=== PATIENT | male | born 1960 | race Two or more races ===

== ENCOUNTER 2025-02-15 05:44 | Inpatient (IN) | payer OTHER, SELFPAY ==
[2025-02-15] VITALS (9 sets, daily range): BP systolic 132–179; BP diastolic 56–88; PULSE 64–97; RESP 14–98; TEMP 34.9–36.9; O2SAT 94–99; BMI 33.0
--- NOTE | 2025-02-15 06:20 | XR_ITS ---
Examination: CT middle inner ear, without contrast. 2-D coronal reconstructions. 2-D sagittal reconstructions. Date and time of exam: February 15, 2025 0728 hrs. Indications: Ear pain beginning 2 days ago CTDI: vol (mGy): 17.9 DLP: (mGycm):155 Technique: Multiple 1.0 mm axial sections of the middle inner ears bilaterally. High-resolution 64 slice scanner utilized. 2-D coronal reconstructions 2-D sagittal reconstructions Low dose protocols were performed. One or more of the following dose reduction techniques were used; automated exposure control, adjustment of the mA and/or KV according to patient size, use of iterative reconstruction technique. Findings: Axial sections of the right demonstrate adequate mastoid aeration. Jugular fossa and carotid canal do not appear remarkable. No deformity of the ossicles. Porus acusticus internus does not exhibit erosion. Cochlear apparatus unremarkable. Semicircular canals normal. Prominent otitis externa. Coronal reconstructions demonstrate no erosion of the scutum. No soft tissue mass in the attic or Prussak's space is seen. Ossicular mass intact. Axial sections of the left demonstrate adequate mastoid aeration. Jugular fossa and carotid canal do not appear remarkable. No deformity of the ossicles. Porus acusticus internus does not exhibit erosion. Cochlear apparatus unremarkable. Semicircular canals normal. Prominent otitis externa Coronal reconstructions demonstrate no erosion of the scutum. Soft tissue mass in the attic or Prussak's space is seen. Ossicular mass intact. Roof of the mastoid air cells appear intact bilaterally. Impression: Bilateral mild acute mastoiditis Bilateral otitis externa Soft tissue density in the left Prussak's space consistent with left cholesteatoma
--- NOTE | 2025-02-15 06:23 | PD.EDRME ---
Rapid Medical Screening Exam RME Arrival date/time: 02/15/25 05:44 64-year-old male with no known medical history presents to the emergency room with a chief complaint of a right ear pain, drainage, and right facial swelling and tenderness behind the ear x 5 days. I have greeted and performed a focused initial assessment of this patient. A comprehensive ED assessment and evaluation of the patient, analysis of all test results, and completion of the medical decision making process will be conducted by additional ED providers. Chief Complaint: Allergic Reaction Time Seen by Provider: 02/15/25 06:12 Vital signs: Vital Signs Temperature 98.4 F 02/15/25 05:53 Pulse Rate 97 02/15/25 05:53 Respiratory Rate 18 02/15/25 05:53 Blood Pressure 179/79 H 02/15/25 05:53 Pulse Oximetry (%) 98 02/15/25 05:53 Oxygen Delivery Method Room Air 02/15/25 05:53 Vital signs reviewed by provider: Yes
[2025-02-15] MEDS: DEXAMETHASONE SOD PHOS INJ 10 MG/ML VIAL PO (06:43)
--- NOTE | 2025-02-15 07:04 | XR_ITS ---
Examination: CT maxillofacial, without intravenous contrast. 2-D sagittal reconstructions. 3-D reconstructions. Date and time of exam:February 15, 2025 0073 hrs. Indications: Patient pain today CTDI: vol (mGy):22.4 DLP: (mGycm):April 28 Technique: Multiple axial images of maxillofacial region, 3.0 mm slice thickness. 2-D sagittal and coronal reconstructions. 3-D reconstructions. Low dose protocols were performed. One or more of the following dose reduction techniques were used; automated exposure control, adjustment of the mA and/or KV according to patient size, use of iterative reconstruction technique. Findings: Frontal bones intact. His fracture Maxilla mandible. Significant chronic left maxillary sinusitis Significant ethmoid sinusitis Acute sphenoid sinusitis Impression: Chronic left maxillary sinusitis. Significant chronic ethmoid sinusitis. Acute left sphenoid sinusitis. Please see the CT middle inner ear report
--- NOTE | 2025-02-15 07:04 | XR_ITS ---
Examination: CT brain head without contrast. 2-D sagittal coronal reconstructions Date and time of exam:February 15, 2025 0728 hrs. Indications: Headaches are obtained. CTDI: vol (mGy):56 DLP: (mGycm):1123 Technique: Multiple CT axial sections of the brain have been obtained, 5 mm slice thickness. Contrast has not been administered. 2-D sagittal, coronal reconstructions have been obtained Low dose protocols were performed. One or more of the following dose reduction techniques were used; automated exposure control, adjustment of the mA and/or KV according to patient size, use of iterative reconstruction technique. Findings: No significant ventricular enlargement. Intra-axial or extra-axial hemorrhage density is not seen. No mass effect or midline shift Basal cisterns are not remarkable. Fourth ventricle is midline. Cranial vault intact. Impression: Negative for acute hemorrhage, mass effect or midline shift Please see the CT middle inner ear report
--- NOTE | 2025-02-15 07:07 | EDNOTE_ITS ---
ED General RME/HPI General Chief complaint: Allergic Reaction Stated complaint: Allergic reaction Time Seen by Provider: 02/15/25 06:12 Source: patient Arrival date/time: 02/15/25 05:44 RME / HPI RME / HPI narrative: DR. NUÑEZ MAIN ED EVALUATION: 64-year-old male with no known medical history presents to the emergency room with a chief complaint of a 5 days of increasing facial swelling and pain supposed started on the left eye and then went to the right eye we also complains of right ear discomfort with normal hearing. 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 Denies any toothache or tooth problem. He is got no intraoral problem. He also states he fell does not believe that is a contributing factor. Denies drinking alcohol or using drugs. Old records reviewed he has got a history of diabetes and methamphetamine abuse. Patient has no changes in his vision his hearing is normal bilaterally. Related Data Home Medications ?Medication ?Instructions ?Recorded ?Confirmed No Known Home Medications 10/23/1802/23 Allergies Allergy/AdvReac Type Severity Reaction Status Date / Time No Known Allergies Allergy Verified 08/12/19 09:44 Review of Systems Review of Systems Systems Reviewed: All systems reviewed, normal except as documented Narrative Review of Systems: Review of Systems: Constitutional: DENIES: Fevers,; Eyes: DENIES: Loss of vision, Head/Ear/Nose: DENIES: Loss of hearing. Throat: Denies dysphagia. Cardiovascular: Denies chest pain, Dyspnea or syncope. Respiratory: DENIES: Shortness of breath, Gastrointestinal: DENIES: Rectal bleeding or melena. Genitourinary: DENIES: Dysuria (painful or difficult urination),; Musculoskeletal: DENIES: Arthralgia (pain in a joint),; Skin: DENIES: Rash,; see HPI Neurological: DENIES: loss of function or movement,; Psychiatric: DENIES: recent major life stressor, emotional problem, illicit drug use or abuse,; Endocrinology: DENIES: Weight change,; Hematologic/Lymphatic: DENIES: Abnormal bruising. Allergic/Immunologic: DENIES: Urticaria (hives), Past Medical History Past Medical History CARDIAC: Positive Hypertension ENDOCRINE: Positive Diabetes Mellitus Type 2 Social History SMOKING STATUS: Never smoker SUBSTANCE USE: does not use ALCOHOL: Never ED Exam Narrative Physical exam: Physical Exam: General: The vital signs were reviewed. Patient has obvious swelling to his face and eyes. The patient is non-toxic, in no apparent distress and appears healthy with a patent airway, no respiratory distress and has no apparent circulatory problems. Head & Scalp: Normocephalic, atraumatic. Face: Bilateral face and maxillary areas have erythema and edema worse on the right with near closure of the eye but he can still open his lids. There is a little debris on the eyelids but no gross purulence. He denies any loss of vision when he opens his eyes and he has full range of motion. The conjunctiva are clear with no lesions. The cornea is grossly clear. Ears: Bilateral tympanic membranes are visualized and clear the external canals have some swelling in them and some debris but there is no obvious otitis externa. Left external pinna appears normal. Right external pinna appears normal. Eyes: The sclera is anicteric. No obvious photophobia. The Left and Right Orbit/Lid/Conjunctiva appears normal without swelling, discoloration or injection. Nose: The nose is without deformity, discharge or tenderness; Throat: Appears normal. The mucous membranes are pink and moist without exudates, redness or mass seen. The tongue appears normal. Neck: The neck is supple and no apparent mass or adenopathy. Chest: The chest wall is normal in size and symmetry and has no chest wall tenderness or crepitus. The patient displays normal ventilator effort without retractions, accessory muscle use and has adequate air movement bilaterally with no wheezes and no rales. Cardiovascular: Regular rate and rhythm; No murmurs, rubs, or gallops; Gastrointestinal: The abdomen appears normal. No obvious hernias or mass. The abdomen is soft and benign, non-distended, with no pain, no guarding and no rebound tenderness. Bowel sounds are present and normal sounding. No CVA tenderness. Genitourinary: Back/Spine: Nontender normal inspection Extremities/Musculoskeletal/lymphatic: Despite reporting swelling to his feet his feet appear normal without any edema to the lower extremities. The bilateral upper and lower extremities are warm. There is no evidence of arterial insufficiency. There is no evidence of venous insufficiency/edema. The patient spontaneously moves bilateral upper and lower extremities with no pain and no limitation of movement. There is no apparent, injury or trauma. Skin: There is no rash on the trunk pelvis and legs. The skin is warm, dry and intact. No rashes. No petechia. No purpura. No abnormal bruising. The color is appropriate with no cyanosis. Mental status/Psychiatric: Mental status is appropriate for age. The patient has no apparent delusions, visual hallucinations, no apparent audible hallucinations. The patient has no apparent suicidal thoughts/ideation and no apparent homicidal thoughts/ideation. Neurological: The patient is awake, alert, interactive, cordial, cooperative and is oriented to name and situation. The patient follows commands and answers historical question with no impairment. There is no visual disturbance apparent. The pupils are equal and reactive bilaterally with normal eye movements and no diplopia The bilateral upper and lower extremities have normal strength, normal range of motion and normal functioning. The gait, station and balance were not tested due to acuity. Course Quality Measures none Orders Category Date Time Status Patient Condition Routine Admission 02/15/25 12:[address] in Observation Status Routine Admission 02/15/25 12:51 Active Continuous Pulse Oximetry NOW Care 02/15/25 12:05 Active Notify provider NEEDED Care 02/15/25 12:05 Active Diet Regular Diet 02/15/[address] ear mid-inner wo Stat Exams 02/15/25 06:[address] facial bones wo con Stat Exams 02/15/25 07:[address] head/brain wo con Stat Exams 02/15/25 07:04 Completed A1C [Glycohemoglobin w (eAG)] AM DRAW Lab 02/16/25 05:00 Ordered Blood Culture (Lab) Stat Lab 02/15/25 07:15 Received CBC AM DRAW Lab 02/16/25 05:00 Ordered CBC AM DRAW Lab 02/17/25 05:00 Ordered CBC AM DRAW Lab 02/18/25 05:00 Ordered CBC Stat Lab 02/15/25 07:25 Completed CMP [Comprehensive Metabolic Panel] Stat Lab 02/15/25 07:25 Completed Comprehensive Metabolic Panel AM DRAW Lab 02/16/25 05:00 Ordered Comprehensive Metabolic Panel AM DRAW Lab 02/17/25 05:00 Ordered Comprehensive Metabolic Panel AM DRAW Lab 02/18/25 05:00 Ordered Lactate (Lactic Acid) Stat Lab 02/15/25 07:25 Completed Lipid Panel AM DRAW Lab 02/16/25 05:00 Ordered Magnesium AM DRAW Lab 02/16/25 05:00 Ordered Phosphorous AM DRAW Lab 02/16/25 05:00 Ordered Urinalysis, C/S if Indicated Stat Lab 02/15/25 11:00 Completed Venous Blood Gas Stat Lab 02/15/25 07:25 Completed Acetaminophen Tab [Tylenol Tab] Med 02/15/25 12:05 Active 650 mg PO Q6H PRN Ampicillin/Sulbac Inj [Unasyn Inj] 3 gm Med 02/15/25 10:42 Discontinued Sodium Chloride 0.9% (Pop) [NS 0.9% mini bag] 100 ml IV X1 Clindamycin 900Mg Ivpb [Cleocin/D5w Ivpb] 900 mg Med 02/15/25 07:04 D iscontinued Pre-Mixed [Pre-mixed Bag] 1 bag IV X1 Dexamethasone Inj [Decadron Inj] Med 02/15/25 06:24 Discontinued 10 mg PO X1 ONE Enoxaparin [Lovenox] Med 02/15/25 12:15 Active 40 mg SC QDAY HYDROcodone*/APAP 5/325 [[place] 5/325] Med 02/15/25 12:35 Active 1 tab PO Q6HR PRN Ondansetron Inj [Zofran Inj] Med 02/15/25 12:05 Active 4 mg IVP Q6H PRN Piper/Tazo 3.375 gm Premix [Zosyn] Med 02/15/25 22:00 Active 3.375 gm in 50 ml IV Q8HR Piper/Tazo 3.375 gm Premix [Zosyn] Med 02/15/25 18:00 Active 3.375 gm in 50 ml IV X1 Senna [Senokot] Med 02/15/25 12:05 Active 1 tab PO QDAY PRN Vancomycin Pharmacy to Dose Med 02/16/25 09:00 Ordered 1 each IV QDAY Vancomycin/Ns 1 gm Ivpb 200 ml Med 02/15/25 10:42 Discontinued IV X1 Code Status Routine Oth 02/15/25 12:05 Ordered Oxygen Delivery PRN RT 02/15/25 12:05 Active Vital Signs Vital signs: Vital Signs Temperature 98.4 F 02/15/25 05:53 Pulse Rate 97 02/15/25 05:53 Respiratory Rate 18 02/15/25 05:53 Blood Pressure 179/79 H 02/15/25 05:53 Pulse Oximetry (%) 98 02/15/25 05:53 Oxygen Delivery Method Room Air 02/15/25 05:53 Discharge Plan Plan Patient Disposition: Admit Acute Care w/in Hospital Discharge Disposition comment: Hospitalist to admit Prescriptions/Referrals Prescriptions/Med Rec: No Action No Known Home Medications Referrals: No Primary/Family,Physician [Primary Care Provider] - In 1 week Problem List Clinical Impression: Facial cellulitis, Acute sinusitis, Acute mastoiditis Impression comment: Patient with CT scan evidence of bilateral acute mastoiditis bilateral otitis externa left cholesteatoma acute left sphenoid sinusitis on CT scan,, chronic left maxillary sinusitis chronic ethmoid sinusitis Patient/Caregiver Discharge Instructions Print Language: Kuwaiti Stand Alone Forms: Any Award Info., Patient Portal Info Letter MDM Narrative MDM hospital course: Patient presents with 5-day worsening of right-sided facial swelling and redness that is possibly related to some minor abrasion due to his work as there is no other obvious source. There is no dental source. Tympanic membrane's look normal. And he has no other signs of allergic reaction. Because of my concern for facial cellulitis recommend CT is head and facial structures. I will start him on some clindamycin but get labs blood cultures and reevaluate. Medical workup came back and positive for acute bilateral mastoiditis acute sinusitis and avoid the sphenoid and ethmoid sinuses with both acute and chronic components and a facial cellulitis with a cholesteatoma present. The tympanic membranes actually look normal with no obvious perforation seen. There is no acute purulence in the ear canals there is probably some chronic otitis externa. This time patient needs antibiotic coverage including anaerobes initially selected clindamycin but up-to-date was reviewed and they suggest that vancomycin and Unasyn are the drugs of choice. I discussed the case with our attending hospitalist Dr. Shin and he came down saw the patient and they tentatively will accept the patient. They are hoping we can get your nose and throat to be back up in some way but we have no ear nose and throat on-call so I placed a call to Dr. Gong. At 1115 hrs. and no callback as of 1134. Krystyna Forte am scribing for and in the presence of Dr. Nuñez. Clinical Information Provided by patient Medical Records Reviewed [facility] Meds/Rx Considered, not Ordered None Labs/Rad/Tests considered, not Ordered None Chronic Illness/Social Conditions Add or document further as needed: Diabetes, hypertension, and a history of methamphetamine abuse. Lab Interpretation Labs: see narrative above Imaging Imaging interpretation: see narrative above Radiology reports / interpretation(s): Procedure(s): CT head/brain wo [facility] Accession Number(s): [id number] cc: Jalen Nuñez MD; Sushil Barba MD; NO PRIMARY/FAMILY,PHYSICIAN~ Examination: CT brain head without contrast. 2-D sagittal coronal reconstructions Date and time of exam:February 15, 2025 0728 hrs. Indications: Headaches are obtained. CTDI: vol (mGy):56 DLP: (mGycm):1123 Technique: Multiple CT axial sections of the brain have been obtained, 5 mm slice thickness. Contrast has not been administered. 2-D sagittal, coronal reconstructions have been obtained Low dose protocols were performed. One or more of the following dose reduction techniques were used; automated exposure control, adjustment of the mA and/or KV according to patient size, use of iterative reconstruction technique. Findings: No significant ventricular enlargement. Intra-axial or extra-axial hemorrhage density is not seen. No mass effect or midline shift Basal cisterns are not remarkable. Fourth ventricle is midline. Cranial vault intact. Impression: Negative for acute hemorrhage, mass effect or midline shift Please see the CT middle inner ear report Dictated By: Sushil Barba MD Procedure(s): CT facial bones wo con Accession Number(s): [id number] cc: Jalen Nuñez MD; Sushil Barba MD; NO PRIMARY/FAMILY,PHYSICIAN~ Examination: CT maxillofacial, without intravenous contrast. 2-D sagittal reconstructions. 3-D reconstructions. Date and time of exam:February 15, 2025 0073 hrs. Indications: Patient pain today CTDI: vol (mGy):22.4 DLP: (mGycm):April 28 Technique: Multiple axial images of maxillofacial region, 3.0 mm slice thickness. 2-D sagittal and coronal reconstructions. 3-D reconstructions. Low dose protocols were performed. One or more of the following dose reduction techniques were used; automated exposure control, adjustment of the mA and/or KV according to patient size, use of iterative reconstruction technique. Findings: Frontal bones intact. His fracture Maxilla mandible. Significant chronic left maxillary sinusitis Significant ethmoid sinusitis Acute sphenoid sinusitis Impression: Chronic left maxillary sinusitis. Significant chronic ethmoid sinusitis. Acute left sphenoid sinusitis. Please see the CT middle inner ear report Dictated By: Sushil Barba MD Procedure(s): CT ear mid-inner wo Accession Number(s): [id number] cc: Adrián Coburn; Sushil Barba MD; NO PRIMARY/FAMILY,PHYSICIAN~ Examination: CT middle inner ear, without contrast. 2-D coronal reconstructions. 2-D sagittal reconstructions. Date and time of exam: February 15, 2025 0728 hrs. Indications: Ear pain beginning 2 days ago CTDI: vol (mGy): 17.9 DLP: (mGycm):155 Technique: Multiple 1.0 mm axial sections of the middle inner ears bilaterally. High-resolution 64 slice scanner utilized. 2-D coronal reconstructions 2-D sagittal reconstructions Low dose protocols were performed. One or more of the following dose reduction techniques were used; automated exposure control, adjustment of the mA and/or KV according to patient size, use of iterative reconstruction technique. Findings: Axial sections of the right demonstrate adequate mastoid aeration. Jugular fossa and carotid canal do not appear remarkable. No deformity of the ossicles. Porus acusticus internus does not exhibit erosion. Cochlear apparatus unremarkable. Semicircular canals normal. Prominent otitis externa. Coronal reconstructions demonstrate no erosion of the scutum. No soft tissue mass in the attic or Prussak's space is seen. Ossicular mass intact. Axial sections of the left demonstrate adequate mastoid aeration. Jugular fossa and carotid canal do not appear remarkable. No deformity of the ossicles. Porus acusticus internus does not exhibit erosion. Cochlear apparatus unremarkable. Semicircular canals normal. Prominent otitis externa Coronal reconstructions demonstrate no erosion of the scutum. Soft tissue mass in the attic or Prussak's space is seen. Ossicular mass intact. Roof of the mastoid air cells appear intact bilaterally. Impression: Bilateral mild acute mastoiditis Bilateral otitis externa Soft tissue density in the left Prussak's space consistent with left cholesteatoma Dictated By: Sushil Barba MD Medication Administration(s) Medication Administration History Acetaminophen (Acetaminophen 325 Mg Tablet) 650 mg PO Q6H PRN PRN Reason: Fever >100.3 or pain 1-3 Stop: 03/17/25 12:04 Hydrocodone Bitart/Acetaminophen (Hydrocodone/Apap 5/325 Tablet) 1 tab PO Q6HR PRN PRN Reason: PAIN SCALE 4-10(Mod-Sev Stop: 02/20/25 12:34 Enoxaparin Sodium (Enoxaparin Sod Inj 40 Mg/0.4 Ml Syringe) 40 mg SC QDAY MARGARITA Stop: 03/01/25 12:14 Piperacillin/Tazobactam/Dextrose (Zosyn) 3.375 gm in 50 mls @ 12.5 mls/hr IV Q8HR MARGARITA Stop: 02/22/25 21:59 Piperacillin/Tazobactam/Dextrose (Zosyn) 3.375 gm in 50 mls @ 100 mls/hr IV X1 ONE Stop: 02/15/25 18:29 Ondansetron HCl (Ondansetron Inj 2 Mg/Ml Inj 2 Ml) 4 mg IVP Q6H PRN; Protocol PRN Reason: NAUSEA OR VOMITING Stop: 03/17/25 12:04 Pharmacy Consult (Vancomycin Pharmacy To Dose 1 Each Each) 1 each IV QDAY MARGARITA Stop: 03/18/25 08:59 Sennosides (Senna Tablet) 1 tab PO QDAY PRN; Protocol PRN Reason: constipation Stop: 03/17/25 12:04 Discontinued Medications Dexamethasone Sodium Phosphate (Dexamethasone Sod Phos Inj 10 Mg/Ml Vial) 10 mg PO X1 ONE Stop: 02/15/25 06:25 Last Admin: 02/15/25 06:43 Dose: 10 mg Documented By: OSCAR Comments: PO MED NOT GIVEN IV Clindamycin Phosphate 900 mg/ (IV Miscellaneous Supplies) 50 mls @ 50 mls/hr IV X1 ONE Stop: 02/15/25 08:03 Last Infusion: 02/15/25 08:29 Dose: Infused Documented By: Admin: 02/15/25 07:29 Dose: 50 mls/hr Documented By: LEXA Vancomycin/Sodium Chloride (Vancomycin/Ns 1 Gm Ivpb) 200 mls @ 120 mls/hr IV X1 ONE Stop: 02/15/25 12:21 Last Admin: 02/15/25 11:26 Dose: 120 mls/hr Documented By: LEXA Ampicillin Sodium/Sulbactam (Sodium 3 gm/ Sodium Chloride) 100 mls @ 200 mls/hr IV X1 ONE Stop: 02/15/25 10:43 Last Infusion: 02/15/25 11:26 Dose: Infused Documented By: Admin: 02/15/25 10:52 Dose: 200 mls/hr Documented By: LEXA Consultations/Discussions re: Management Consult #1: Date/time: 02/15/25 11:42 am Physician, specialty, service, details: Discussed test HPI, PMHx, lab, radiology results and/or management with Dr. Pereyra. Following his recommendations, including 10 days of Augmentin. He also mentions he will be here tomorrow in the [place] and available for consult. Consult #2: Date/time: 02/15/25 11:43 am Physician, specialty, service, details: Discussed test HPI, PMHx, lab, radiology results and/or management with Dr. Shin. Will admit for further evaluation and management. Accepts patient for admission. Diagnosis Differential diagnosis: Orbital cellulitis, facial cellulitis, earache Most likely dx, and/or detailed dx discussion: Facial cellulitis Acute sinusitis Acute mastoiditis Dispositon Disposition: Admit
[2025-02-15] MEDS: CLINDAMYCIN 900MG IVPB 900 MG in PRE-MIXED 1 BAG 50 MG IV (07:29)
[2025-02-15 07:30] LABS: Base Excess, Venous 3 (-3-3); O2 Saturation, Venous 77 % (96-97); PCO2, Venous 43 mmHg (36-56); PO2, Venous 41 mmHg (15-58); pH, Venous 7.42 (7.33-7.66)
[2025-02-15 07:32] LABS: Lactate (Lactic Acid) 1.9 mMol/L (0.4-2.0)
[2025-02-15 07:39] LABS: Basophils % (Auto) 0 % (0-2.5); Eosinophils # (Auto) 0.1 Thou/mm3 (0.0-0.5); Eosinophils % (Auto) 1 % (0-10); Hematocrit 39.5 % (41.0-53.0); Hemoglobin 14.4 g/dL (13.5-16.0); Immature Granulocytes % (Auto) 1 % (0-0); Immature Granulocytes Auto 0.15 Thou/mm3 (0.00-0.00); Lymphocytes # (Auto) 2.2 Thou/mm3 (1.0-4.8); Lymphocytes % (Auto) 17 % (10-50); Mean Corpuscular HGB Conc 36.5 g/dl (31.0-37.0); Mean Corpuscular Hemoglobin 29.2 pg (25.0-35.0); Mean Corpuscular Volume 80 fL (80-100); Monocytes # (Auto) 1.2 Thou/mm3 (0.0-0.8); Monocytes % (Auto) 9 % (0-12); Neutrophils # (Auto) 9.3 Thou/mm3 (1.8-7.7); Neutrophils % (Auto) 72 % (37-80); Nucleated Red Blood Cell % 0 /100 WBC (0); Platelet Count 269 Thou/mm3 (140-440); RDW Standard Deviation 39.9 fL (35.1-43.9); Red Blood Count 4.93 Miln/mm3 (4.50-5.90)
[2025-02-15 07:52] LABS: Alanine Aminotransferase 13 U/L (10-49); Albumin, Serum 3.9 gm/dL (3.4-4.8); Albumin/Globulin Ratio 1.4 (1.2-2.2); Alkaline Phosphatase 116 U/L (46-116); Anion Gap 10 (7-16); BUN/Creatinine Ratio 12 Ratio (12-20); Bilirubin,Total 0.6 mg/dL (0.3-1.2); Blood Urea Nitrogen 11 mg/dL (9-23); Calcium 8.6 mg/dL (8.3-10.6); Calcium (Corrected) 8.7 mg/dL (8.5-10.1); Carbon Dioxide 25.7 mMol/L (20.0-31.0); Chloride 99 mMol/L (98-107); Creatinine (Component) 0.9 mg/dL (0.6-1.3); Estimated Creatinine Clearance 84.4 mL/min (>60); Globulin 2.7 gm/dL (2.3-3.5); Glucose 140 mg/dL (74-106); Osmolality,Calculated 271 (275-295); Potassium 3.5 mMol/L (3.4-5.1); Sodium 135 mMol/L (136-145); Total Protein 6.6 gm/dL (5.7-8.2); eGFR > 60 See Note
[2025-02-15] MEDS: AMPICILLIN/SULBAC INJ 3 GM in SODIUM CHLORIDE 0.9% (POP) 100 ML IV ×3 (10:52→23:29)
[2025-02-15 11:02] LABS: Collection Type, Urine Clean Catch
[2025-02-15 11:12] LABS: Bacteria,Urine Rare; Bilirubin,Urine Negative (Negative); Blood,Urine Negative (Negative); Color,Urine Yellow (Lt Yel-Yel); Culture Indicated,Urine Not Indicated; Glucose, Urine Negative (Negative); Ketones,Urine Trace (Negative); Leukocyte Esterase,Urine Positive (Negative); Nitrite,Urine Negative (Negative); Protein,Urine Trace (Neg - Trace); RBC,Urine 5 /hpf (0-3); Specific Gravity,Urine 1.029 (1.001-1.035); Squamous Epithelial Cell,Urine < 1 /hpf (0-5); WBC,Urine 8 /hpf (0-5)
[2025-02-15 11:16] LABS: Clarity,Urine Hazy (Clear/Hazy)
[2025-02-15] MEDS: VANCOMYCIN/NS 1 GM IVPB 200 ML IV (11:26)
[2025-02-15] MEDS: VANCOMYCIN/NS 500 MG IVPB 100 ML 120 MG IV (14:29)
[2025-02-15] MEDS: ENOXAPARIN SOD INJ 40 MG/0.4 ML SYRINGE SC (14:30)
--- NOTE | 2025-02-15 16:03 | PC.NURSE ---
Patient received from ED, upon inital assessment patient cold to the touch, pupils nonreactive to light oral temp and rectal temp obtained. JOINERY SETTER OUT called at [phone], see JOINERY SETTER OUT form.
[2025-02-15 16:44] LABS: Lactate (Lactic Acid) 2.1 mMol/L (0.4-2.0)
[2025-02-15 16:47] LABS: Basophils % (Auto) 0 % (0-2.5); Eosinophils % (Auto) 0 % (0-10); Hematocrit 43.4 % (41.0-53.0); Hemoglobin 15.5 g/dL (13.5-16.0); Immature Granulocytes % (Auto) 1 % (0-0); Immature Granulocytes Auto 0.18 Thou/mm3 (0.00-0.00); Lymphocytes # (Auto) 1.6 Thou/mm3 (1.0-4.8); Lymphocytes % (Auto) 11 % (10-50); Mean Corpuscular HGB Conc 35.7 g/dl (31.0-37.0); Mean Corpuscular Volume 81 fL (80-100); Monocytes # (Auto) 0.3 Thou/mm3 (0.0-0.8); Monocytes % (Auto) 2 % (0-12); Neutrophils # (Auto) 12.8 Thou/mm3 (1.8-7.7); Neutrophils % (Auto) 86 % (37-80); Nucleated Red Blood Cell % 0 /100 WBC (0); Platelet Count 293 Thou/mm3 (140-440); RDW Standard Deviation 40.5 fL (35.1-43.9); Red Blood Count 5.35 Miln/mm3 (4.50-5.90); White Blood Count 14.8 Thou/mm3 (3.8-10.6)
--- NOTE | 2025-02-15 16:52 | PD.RESHP ---
Documentation for date of: 02/15/25 [facility] History of Present Illness Chief complaint: face swelling History of present illness: Evan Torres is 64 yr male with PMH of polysubstance drug abuse presenting to ED due to right-sided facial swelling/periorbital swelling. Stated that right eye started closing due to the swelling about 5 days ago. He works in [employer] and may have had mild trauma but cannot specifically recall. Endorses ear pain earlier but has improved. Feels like his hearing has changed on the right side since onset of symptoms. Generally has improved since the past few days but still bothersome. Pain at worst was 8/10, throbbing in nature. Denies any vision loss, no significant discharge, no fever, no headaches. He did not try to use anything at home for symptom relief. No recent sick contacts. In ED, BP 180/80, afebrile, mild tachycardia 97. Leukocytosis 13, glucose 140, LA normal, utox positive for cocaine/amphetamine. CT orbit showed bilateral mild acute mastoiditis, soft tissue density in left Prussak's space (possible cholesteatoma). Face CT showed sinusitis. Patient was given dexamethasone 10 mg, clindamycin, Unasyn x 1 in ED. Admit for IV antibiotics in setting of mastoiditis. PMH: As noted above PSH: Denies surgery history FamHx: History of diabetes in brothers Social: Works at [employer]. Smokes 1 pack cigarettes every 2 days for many years. Denies drinking alcohol. Initially denied drug use but later stated that friends gave him something to take. His U tox is positive. Meds: Denies taking medication Allergies: NKDA Exam Vital Signs Temp Pulse Resp BP Pulse Ox O2 Del Method 97.6 F 75 20 141/59 H 94 L Room Air 02/15/25 14:00 02/15/25 14:33 02/15/25 14:33 02/15/25 14:00 02/15/25 14:00 02/15/25 14:00 Narrative Exam General: Middle age male, No acute distress, cooperative, unkempt HEENT: NCAT, No JVD noted. Mucosa dry. Poor pupillary light reflex bilaterally. Right periorbital swelling with erythema, no dishcarge. Warm to touch. Cardiovascular: Normal S1 and S2. Regular rate and rhythm. Respiratory: Lungs are clear to auscultation bilaterally. No wheezing or crackles heard. Abdomen: Soft, nontender, not distended, normal bowel sounds. Skin: Clammy, dry, no rashes noted Musculoskeletal: No gross injuries. Able to move all 4 extremities. No pitting edema Neuro: Alert and oriented x3. No focal neuro deficits. Psych: Normal affect and mood Results: Labs 02/16/25 05:37 02/16/25 05:37 Labs: Short CBC 02/15/25 02/15/25 Range/Units 07:25 15:58 WBC 13.0 H 14.8 H (3.8-10.6) Thou/mm3 Hgb 14.4 15.5 (13.5-16.0) g/dL Hct 39.5 L 43.4 (41.0-53.0) % Plt Count 269 293 (140-440) Thou/mm3 BMP 02/15/25 07:25 Sodium 135 L Potassium 3.5 Chloride 99 Carbon Dioxide 25.7 BUN 11 Creatinine 0.9 Glucose 140 H Calcium 8.6 Liver Function 02/15/25 Range/Units 07:25 Total Bilirubin 0.6 (0.3-1.2) mg/dL ALT 13 (10-49) U/L Alkaline Phosphatase 116 (46-116) U/L Albumin 3.9 (3.4-4.8) gm/dL Urine 02/15/25 Range/Units 11:00 Urine Color Yellow (Lt Yel-Yel) Urine Clarity Hazy (Clear/Hazy) Urine pH 6.0 (5.0-7.0) Ur Specific [place] 1.029 (1.001-1.035) Urine Protein Trace (Neg - Trace) Urine Glucose (UA) Negative (Negative) ABG Interpretation ABG results: 02/15/25 07:25 VBG pH 7.42 VBG pCO2 43 VBG pO2 41 VBG Base Excess 3 Quality Measures Quality Measures none Advance care planning discussed with:: patient Medications Home Medications and Allergies Home Medications ?Medication ?Instructions ?Recorded ?Confirmed ?Type No Known Home Medications 10/23/18 08/12/19 History Allergies Allergy/AdvReac Type Severity Reaction Status Date / Time No Known Allergies Allergy Verified 08/12/19 09:44 Visit Medications Acetaminophen (Acetaminophen 325 Mg Tablet) 650 mg PO Q6H PRN PRN Reason: Fever >100.3 or pain 1-3 Stop: 03/17/25 12:04 Hydrocodone Bitart/Acetaminophen (Hydrocodone/Apap 5/325 Tablet) 1 tab PO Q6HR PRN PRN Reason: PAIN SCALE 4-10(Mod-Sev Stop: 02/20/25 12:34 Enoxaparin Sodium (Enoxaparin Sod Inj 40 Mg/0.4 Ml Syringe) 40 mg SC QDAY MARGARITA Stop: 03/01/25 12:14 Last Admin: 02/15/25 14:30 Dose: 40 mg Ampicillin Sodium/Sulbactam (Sodium 3 gm/ Sodium Chloride) 100 mls @ 200 mls/hr IV Q6HR MARGARITA Stop: 02/22/25 16:59 Ondansetron HCl (Ondansetron Inj 2 Mg/Ml Inj 2 Ml) 4 mg IVP Q6H PRN; Protocol PRN Reason: NAUSEA OR VOMITING Stop: 03/17/25 12:04 Pharmacy Consult (Vancomycin Pharmacy To Dose 1 Each Each) 1 each IV QDAY MARGARITA Stop: 03/18/25 08:59 Sennosides (Senna Tablet) 1 tab PO QDAY PRN; Protocol PRN Reason: constipation Stop: 03/17/25 12:04 Discontinued Medications Dexamethasone Sodium Phosphate (Dexamethasone Sod Phos Inj 10 Mg/Ml Vial) 10 mg PO X1 ONE Stop: 02/15/25 06:25 Last Admin: 02/15/25 06:43 Dose: 10 mg Clindamycin Phosphate 900 mg/ (IV Miscellaneous Supplies) 50 mls @ 50 mls/hr IV X1 ONE Stop: 02/15/25 08:03 Last Infusion: 02/15/25 08:29 Dose: Infused Vancomycin/Sodium Chloride (Vancomycin/Ns 1 Gm Ivpb) 200 mls @ 120 mls/hr IV X1 ONE Stop: 02/15/25 12:21 Last Infusion: 02/15/25 13:13 Dose: Infused Ampicillin Sodium/Sulbactam (Sodium 3 gm/ Sodium Chloride) 100 mls @ 200 mls/hr IV X1 ONE Stop: 02/15/25 10:43 Last Infusion: 02/15/25 11:26 Dose: Infused Vancomycin/Sodium Chloride (Vancomycin/Ns 500 Mg Ivpb) 100 mls @ 120 mls/hr IV X1 ONE Stop: 02/15/25 15:19 Last Infusion: 02/15/25 15:18 Dose: Infused Assessment & Plan Plan Evan Torres is 64 yr male with PMH of polysubstance drug abuse presenting to ED due to right-sided facial swelling/periorbital swelling. Stated that right eye started closing due to the swelling about 5 days ago. Admit for IV antibiotics in setting of mastoiditis. #Facial Cellulitis #Sinusitis #Leukocytosis 2/2 infection Right sided facial swelling/periorbital swelling that started 5 days ago. No significant vision changes. Leukocytosis 13 CT orbit showed bilateral mild acute mastoiditis, soft tissue density in left Prussak's space (possible cholesteatoma). Face CT showed sinusitis. Patient was given dexamethasone 10 mg, clindamycin, Unasyn x 1 in ED. 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 Shin. Laura Oliver, PGY-1 Attending Provider Attestation/Addendum I have examined the patient, reviewed labs and imaging findings, discussed the case with the resident(s), and reviewed entered orders. I agree with the plan of care as outlined in this note, with these additional summaries/recommendations: After examination of the patient and review of the clinical data, I feel that this patient needs admission to the hospital for further treatment and evaluation. Patient is a 64-year-old male with a medical history of primary hypertension, dyslipidemia, and polysubstance abuse presents to [facility] emergency department on 02/15/2025 with chief complaint of 5 days of increasing facial swelling and pain. 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 I do not see any laceration, puncture wound, or insect bite throughout the face. CT orbits revealed bilateral mild mastoiditis, bilateral otitis externa, and cholesteatoma of left ear. CT scan of face revealed left maxillary sinusitis, ethmoid sinusitis, and left sphenoid sinusitis. Given patient's physical exam findings and chief complaints with mastoiditis seen on imaging I requested ENT evaluation. The ER provider was able to speak with ENT Dr. Gong who feels that this is low likelihood of mastoiditis and likely just simple facial cellulitis. He recommends IV antibiotics and once more improved p.o. Augmentin on discharge. Will continue to monitor for any worsening symptoms and will recontact ENT if needed. Continue pain management. Patient has history of polysubstance abuse and unclear if still using. Mild hypothermia present and extra blankets given. No history of diabetes per patient. Patient updated on the plan and in agreement. All questions answered to satisfaction. Please see residents note for additional details and management. Dr. Aleida MD
[2025-02-15 17:00] LABS: Alanine Aminotransferase 13 U/L (10-49); Albumin, Serum 3.9 gm/dL (3.4-4.8); Albumin/Globulin Ratio 1.3 (1.2-2.2); Alkaline Phosphatase 125 U/L (46-116); Anion Gap 12 (7-16); BUN/Creatinine Ratio 16 Ratio (12-20); Bilirubin,Total 0.4 mg/dL (0.3-1.2); Blood Urea Nitrogen 13 mg/dL (9-23); Calcium (Corrected) 9.1 mg/dL (8.5-10.1); Carbon Dioxide 26.4 mMol/L (20.0-31.0); Chloride 100 mMol/L (98-107); Creatinine (Component) 0.8 mg/dL (0.6-1.3); Estimated Creatinine Clearance 94.9 mL/min (>60); Glucose 249 mg/dL (74-106); Osmolality,Calculated 283 (275-295); Potassium 3.6 mMol/L (3.4-5.1); Sodium 138 mMol/L (136-145); Total Protein 6.9 gm/dL (5.7-8.2); eGFR > 60 See Note
[2025-02-15] MEDS: SODIUM CHLORIDE 0.9% 1000 ML 1,000 ML 125 ML IV (17:27)
[2025-02-15 19:40] LABS: Reflex Lactate? Y
--- NOTE | 2025-02-15 19:42 | PC.LAC ---
Notified MD. Dr. Ashton regarding patient rectal temperature of 96.4. Per MD. apply bear hugger to patient and heating measures. Per charge nurse, we cannot due bear hugger on the medsurge floor. Nurses applied heated blankets to patient for heating measures. Will recheck temperature.
[2025-02-15] MEDS: INSULIN LISPRO (AdmeLOG) 1 UNIT/0.01 ML UNIT SC (20:43)
[2025-02-15 23:40] LABS: Reflex Lactate? Y
[2025-02-16] VITALS (9 sets, daily range): BP systolic 126–161; BP diastolic 73–79; PULSE 60–69; RESP 16–97; TEMP 36.2–36.8; O2SAT 93–100
[2025-02-16 00:17] LABS: Lactic Acid, 3 HR 2.5 mMol/L (0.4-2.0)
[2025-02-16] MEDS: AMPICILLIN/SULBAC INJ 3 GM in SODIUM CHLORIDE 0.9% (POP) 100 ML IV ×3 (05:15→18:03)
[2025-02-16 06:00] LABS: Basophils # (Auto) 0.1 Thou/mm3 (0.0-0.2); Basophils % (Auto) 0 % (0-2.5); Eosinophils % (Auto) 0 % (0-10); Hematocrit 42.9 % (41.0-53.0); Hemoglobin 14.9 g/dL (13.5-16.0); Immature Granulocytes % (Auto) 1 % (0-0); Immature Granulocytes Auto 0.26 Thou/mm3 (0.00-0.00); Lymphocytes # (Auto) 2.4 Thou/mm3 (1.0-4.8); Lymphocytes % (Auto) 12 % (10-50); Mean Corpuscular HGB Conc 34.7 g/dl (31.0-37.0); Mean Corpuscular Hemoglobin 29.1 pg (25.0-35.0); Mean Corpuscular Volume 84 fL (80-100); Monocytes # (Auto) 1.3 Thou/mm3 (0.0-0.8); Monocytes % (Auto) 6 % (0-12); Neutrophils # (Auto) 16.5 Thou/mm3 (1.8-7.7); Neutrophils % (Auto) 80 % (37-80); Nucleated Red Blood Cell % 0 /100 WBC (0); Platelet Count 356 Thou/mm3 (140-440); RDW Standard Deviation 41.9 fL (35.1-43.9); Red Blood Count 5.12 Miln/mm3 (4.50-5.90); White Blood Count 20.5 Thou/mm3 (3.8-10.6)
[2025-02-16 06:10] LABS: Glucose Estimated Average 105 mg/dL (80-131); Hemoglobin A1C 5.3 % Hgb (4.8-6.0)
[2025-02-16 06:26] LABS: Alanine Aminotransferase 12 U/L (10-49); Albumin, Serum 3.7 gm/dL (3.4-4.8); Albumin/Globulin Ratio 1.4 (1.2-2.2); Alkaline Phosphatase 116 U/L (46-116); Anion Gap 10 (7-16); BUN/Creatinine Ratio 21 Ratio (12-20); Bilirubin,Total 0.3 mg/dL (0.3-1.2); Blood Urea Nitrogen 15 mg/dL (9-23); Calcium 8.8 mg/dL (8.3-10.6); Carbon Dioxide 23.9 mMol/L (20.0-31.0); Cardiac Risk Estimate 5.8 RATIO (4.0-6.7); Chloride 106 mMol/L (98-107); Cholesterol 133 mg/dL (132-200); Creatinine (Component) 0.7 mg/dL (0.6-1.3); Estimated Creatinine Clearance 108.5 mL/min (>60); Globulin 2.7 gm/dL (2.3-3.5); Glucose 145 mg/dL (74-106); HDL Cholesterol 23 mg/dL (40-60); LDL Cholesterol,Calculated 93 mg/dL (0-130); Osmolality,Calculated 283 (275-295); Phosphorous 3.4 mg/dL (2.4-5.1); Potassium 3.8 mMol/L (3.4-5.1); Sodium 140 mMol/L (136-145); Total Protein 6.4 gm/dL (5.7-8.2); Triglycerides 85 mg/dL (30-150); eGFR > 60 See Note
[2025-02-16] MEDS: amLODIPine BESYLATE 5 MG TABLET PO (08:41)
[2025-02-16] MEDS: ENOXAPARIN SOD INJ 40 MG/0.4 ML SYRINGE SC (08:43)
[2025-02-16] MEDS: SODIUM CHLORIDE 0.9% 1000 ML 1,000 ML 80 ML IV (08:47)
[2025-02-16] MEDS: VANCOMYCIN/D5W 1,250 MG IVPB 250 ML 120 MG IV ×2 (09:00→21:19)
--- NOTE | 2025-02-16 12:08 | PC.SS ---
Patient is a 64 Year old male admitted for Mastoiditis Sinusitis. SS met with patient at bedside to discuss discharge plan an verify demographic information. Patient appeared to be alert and oriented to place, situation and location. [place] his work at the [employer]. Patient reports he chooses to live that way and reports his daughter and brother have asked him to live with family. Patient's brother, Car Torres is his surrogate decision maker [phone]. Patient does not utilize any source of DME to assist with ambulation and is able to complete all ADL's independently. Patient does not have a PCP. Choice of pharmacy is [facility]. At time of discharge patient reports his brother will provide transportation. Next of kin: brotherCar [phone] Discharge plan: Back to community
--- NOTE | 2025-02-16 12:29 | PC.SS ---
SS met with patient to discuss the recent positive toxicology report indicating the presence of Amphetamines and cocaine. The patient acknowledged the results and expressed willingness to receive support and resources. SS provided Community resource list including local support groups, counseling services and substance abuse programs. SS encouraged to review the list and follow up with resources as needed. SS will stand by for further needs.
--- NOTE | 2025-02-16 13:06 | PC.SS ---
SS follow up note: Patient is on IV ABX. Patient will return back to the community when medically cleared.
--- NOTE | 2025-02-16 15:30 | ESPR_ITS ---
Documentation for date of: 02/16/25 Subjective Subjective Interval history: Patient examined at bedside. No events overnight, no major complaints. States that his swelling has improved, pain is well-controlled. No vision changes, extraocular movements intact. WBCs up trended to 20 most likely reactive to steroid dose in the ED. Lactic acid downtrending. ENT Dr. Pereyra was consulted for facial cellulitis, low suspicion of mastoiditis--Continue fluids, IV Unasyn Started on amlodipine 5mg daily for BP control. Blood cutlures at 24hr have been negative. Exam Vital Signs Temp Pulse Resp BP Pulse Ox O2 Del Method 97.5 F 60 18 148/77 H 100 Room Air 02/16/25 12:00 02/16/25 12:00 02/16/25 12:00 02/16/25 12:00 02/16/25 12:02/16/25 12:00 Narrative Exam General: Middle age male, No acute distress, cooperative, unkempt HEENT: NCAT, No JVD noted. Mucosa dry. Normal pupillary light reflex. Right periorbital swelling with erythema has improved, no dishcarge. Warm to touch. Cardiovascular: Normal S1 and S2. Regular rate and rhythm. Respiratory: Lungs are clear to auscultation bilaterally. No wheezing or crackles heard. Abdomen: Soft, nontender, not distended, normal bowel sounds. Skin: Clammy, dry, no rashes noted Musculoskeletal: No gross injuries. Able to move all 4 extremities. No pitting edema Neuro: Alert and oriented x3. No focal neuro deficits. Psych: Normal affect and mood Objective Labs 02/17/25 05:14 02/17/25 05:14 Labs: Laboratory Results - last 24 hr 02/15/25 02/15/25 02/15/25 15:58 20:19 23:59 WBC 14.8 H RBC 5.35 Hgb 15.5 Hct 43.4 MCV 81 MCH 29.0 MCHC 35.7 RDW Std Deviation 40.5 Plt Count 293 Neut % (Auto) 86 H Lymph % (Auto) 11 [place] % (Auto) 2 Eos % (Auto) 0 Baso % (Auto) 0 Neut # (Auto) 12.8 H Lymph # (Auto) 1.6 [place] # (Auto) 0.3 Eos # (Auto) 0.0 Baso # (Auto) 0.0 Immature Gran # (Auto) 0.18 H Absolute Nucleated RBC 0.00 Immature Gran % 1 H Nucleated RBC % 0 Sodium 138 Potassium 3.6 Chloride 100 Carbon Dioxide 26.4 Anion Gap 12 BUN 13 Creatinine 0.8 Estim Creat Clear Calc 94.9 eGFR > 60 BUN/Creatinine Ratio [address] Glu mg/dL Hemoglobin A1c Calculated Osmolality 283 Lactic Acid 2.1 H 3.0 H 2.5 H Calcium 9.0 Corrected Calcium 9.1 Phosphorus Magnesium Total Bilirubin 0.4 ALT 13 Alkaline Phosphatase 125 H Total Protein 6.9 Albumin 3.9 Globulin 3.0 Albumin/Globulin Ratio 1.3 Triglycerides Cholesterol LDL Cholesterol, Calc HDL Cholesterol Cholesterol/HDL Ratio 02/16/25 05:37 WBC 20.5 H D RBC 5.12 Hgb 14.9 Hct 42.9 MCV 84 MCH 29.1 MCHC 34.7 RDW Std Deviation 41.9 Plt Count 356 D Neut % (Auto) 80 Lymph % (Auto) 12 [place] % (Auto) 6 Eos % (Auto) 0 Baso % (Auto) 0 Neut # (Auto) 16.5 H Lymph # (Auto) 2.4 [place] # (Auto) 1.3 H Eos # (Auto) 0.0 Baso # (Auto) 0.1 Immature Gran # (Auto) 0.26 H Absolute Nucleated RBC 0.00 Immature Gran % 1 H Nucleated RBC % 0 Sodium 140 Potassium 3.8 Chloride 106 Carbon Dioxide 23.9 Anion Gap 10 BUN 15 Creatinine 0.7 Estim Creat Clear Calc 108.5 eGFR > 60 BUN/Creatinine Ratio 21 H Glucose [address] Glu mg/dL 105 Hemoglobin A1c 5.3 Calculated Osmolality 283 Lactic Acid Calcium 8.8 Corrected Calcium 9.0 Phosphorus 3.4 Magnesium 2.0 Total Bilirubin 0.3 ALT 12 Alkaline Phosphatase 116 Total Protein 6.4 Albumin 3.7 Globulin 2.7 Albumin/Globulin Ratio 1.4 Triglycerides 85 Cholesterol 133 LDL Cholesterol, Calc 93 HDL Cholesterol 23 L Cholesterol/HDL Ratio 5.8 ABG Interpretation ABG results: 02/15/25 07:25 VBG pH 7.42 VBG pCO2 43 VBG pO2 41 VBG Base Excess 3 Quality Measures Quality Measures none Advance care planning discussed with:: patient Assessment & Plan Assessment Current Active Medications: Generic Name Dose Route Start Last Admin Trade Name Freq PRN Reason Stop Dose Admin Acetaminophen 650 mg 06/11/25 12:05 Acetaminophen 325 Mg Tablet PO 03/17/25 12:04 Q6H PRN Fever >100.3 or pain 1-3 Hydrocodone Bitart/Acetaminophen 1 tab 02/15/25 12:35 Hydrocodone/Apap 5/325 Tablet PO 02/20/25 12:34 Q6HR PRN PAIN SCALE 4-10(Mod-Sev Amlodipine Besylate 5 mg 02/16/25 09:00 02/16/25 08:41 Amlodipine Besylate 5 Mg Tablet PO 03/18/25 08:59 5 mg QDAY MARGARITA Administration Dextrose 25 ml 02/15/25 18:32 Dextrose 50%-Water Inj 50 Ml Syringe IV 03/17/25 18:31 Q15MIN PRN BG 50-70 responsive npo pt Dextrose 50 ml 02/15/25 18:32 Dextrose 50%-Water Inj 50 Ml Syringe IV 03/17/25 18:31 Q15MIN PRN BG <50 OR BG <70 & pt unresponsive Enoxaparin Sodium 40 mg 02/15/25 12:15 02/16/25 08:43 Enoxaparin Sod Inj 40 Mg/0.4 Ml Syringe SC 03/01/25 12:14 40 mg QDAY MARGARITA Administration Glucagon 1 mg 02/15/25 18:32 Glucagon Inj 1 Mg Vial IM Q15MIN PRN BG <70, and no IV access Ampicillin Sodium/Sulbactam 100 mls @ 200 mls/hr 02/15/25 17:00 02/16/25 11:35 Sodium 3 gm/ Sodium Chloride IV 02/22/25 16:59 200 mls/hr Q6HR MARGARITA Administration Vancomycin HCl/Dextrose 250 mls @ 120 mls/hr 02/16/25 10:00 02/16/25 09:00 Vancomycin/D5w 1,250 Mg Ivpb IV 02/23/25 09:59 120 mls/hr BID@1000,2200 MARGARITA Administration Sodium Chloride 1,000 mls @ 80 mls/hr 02/16/25 08:14 02/16/25 08:47 Ns IV 02/16/25 20:43 80 mls/hr .[id number] ONE Administration Insulin Human Lispro 0 unit 02/15/25 19:15 02/16/25 11:29 Insulin Lispro (Admelog) 1 Unit/0.01 Ml Unit SC 03/17/25 19:14 Not Given ACHS [facility] Protocol Ondansetron HCl 4 mg 02/15/25 12:05 Ondansetron Inj 2 Mg/Ml Inj 2 Ml IVP 03/17/25 12:04 Q6H PRN NAUSEA OR VOMITING Protocol Pharmacy Consult 1 each 02/16/25 09:00 02/16/25 08:43 Vancomycin Pharmacy To Dose 1 Each Each IV 03/18/25 08:59 1 each QDAY MARGARITA Administration Sennosides 1 tab 02/15/25 12:05 Senna Tablet PO 03/17/25 12:04 QDAY PRN constipation Protocol Plan Evan Torres is 64 yr male with PMH of polysubstance drug abuse presenting to ED due to right-sided facial swelling/periorbital swelling. Stated that right eye started closing due to the swelling about 5 days ago. Admit for IV antibiotics in setting of mastoiditis. #Facial Cellulitis #Sinusitis #Leukocytosis 2/2 infection Right sided facial swelling/periorbital swelling that started 5 days ago. No significant vision changes. Leukocytosis 13 CT orbit showed bilateral mild acute mastoiditis, soft tissue density in left Prussak's space (possible cholesteatoma). Face CT showed sinusitis. Patient was given dexamethasone 10 mg, clindamycin, Unasyn x 1 in ED. -IV Unasyn 3gm q6hr (02/15- -vancomycin (02/15- -prelminary blood cultures negative -IV fluids -ENT Dr. Pereyra consulted, appreciate recs -plan for Augmentin 10days at discharge -pain mgmt with norco/tylenol #Hypertension He has not followed up with PCP or had outpatient care. Not on any medications for BP control. Since admission have been moderately elevated. Will start patient on amlodipine 5 mg daily. A1c 5.3. ? Amlodipine 5 mg daily ? 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 Shin. Laura Oliver, PGY-1 Attending Provider Attestation/Addendum I have examined the patient, reviewed labs and imaging findings, discussed the case with the resident(s), and reviewed entered orders. I agree with the plan of care as outlined in this note, with these additional summaries/recommendations: After examination of the patient and review of the clinical data, I feel that this patient needs admission to the hospital for further treatment and evaluation. Patient is a 64-year-old male with a medical history of primary hypertension, dyslipidemia, and polysubstance abuse presents to [facility] emergency department on 02/15/2025 with chief complaint of 5 days of increasing facial swelling and pain. 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 Patient seen at bedside. No acute overnight events. He reports minor improvement in facial swelling/pain today. I do not see any laceration, puncture wound, or insect bite throughout the face. CT orbits revealed bilateral mild mastoiditis, bilateral otitis externa, and cholesteatoma of left ear. CT scan of face revealed left maxillary sinusitis, ethmoid sinusitis, and left sphenoid sinusitis. On admission ER provider was able to speak with ENT and reported low likelihood of mastoiditis and likely just simple facial cellulitis. Patient will be evaluated by ENT today, referral made. Continue IV antibiotics and once more improved p.o. Augmentin on discharge. Will continue to monitor for any worsening symptoms Continue pain management. Patient has history of polysubstance abuse and unclear if still using. No history of diabetes per patient. Patient updated on the plan and in agreement. All questions answered to satisfaction. Please see residents note for additional details and management. Dr. Aleida MD
--- NOTE | 2025-02-16 16:11 | PD.SURCONS ---
HPI Consult details Reason for consultation narrative: Acute right facial swelling History of present illness: Patient was admitted through the emergency room yesterday for 5 days of swelling in the right cheek with associated pain. No other complaints were voiced but he states this has been a recurrent problem. Symptoms have improved since starting the antibiotics and steroids. Interpretation was provided by hospital staff. Review of Systems ENT Comments: Right facial swelling and pain. He denies any ear drainage or sinus drainage. He denies any sores in his mouth. Past Medical History Past Medical History CARDIAC: Positive Hypertension ENDOCRINE: Positive Diabetes Mellitus Type 2 Social History SMOKING STATUS: Never smoker SUBSTANCE USE: does not use ALCOHOL: Never Meds Home Medications and Allergies Home Medications ?Medication ?Instructions ?Recorded ?Confirmed ?Type No Known Home Medications 10/23/18 02/16/25 History Allergies Allergy/AdvReac Type Severity Reaction Status Date / Time No Known Allergies Allergy Verified 08/12/19 09:44 Exam Vital Signs Temp Pulse Resp BP Pulse Ox O2 Del Method 97.5 F 60 18 148/77 H 100 Room Air 02/16/25 12:02/16/25 12:02/16/25 12:02/16/25 12:02/16/25 12:02/16/25 12:00 Narrative Exam Patient was alert and oriented and was not in any acute distress. He did have erythema and edema of the right maxillary region laterally. There is mild swelling of the right upper and lower eyelids. There was no purulent drainage out from the face. Facial mobility was normal other than mild limitation from the swelling. External nose was normal in appearance. The right external canal was partially blocked with cerumen but no swelling or drainage. The left ear was partially blocked as well. Pinnas were normal in appearance. Nose is without discharge or significant swelling. Oral exam showed the patient to have dentures we had him remove these and there were no ulcerations or lesions deep to the dentures. Neck exam had no significant adenopathy present. There was tenderness on the right side. Patient's voice quality was normal. Results Results: Laboratory Laboratory Narrative: Lab reports were reviewed. He does have an increased white count but this could be due to the IV Decadron that he was given. He also has an increased neutrophil count. Results: Imaging Imaging narrative: CT of the face was reviewed as well as the report. There was no significant effusion in the mastoid air cells or the middle ear. The paranasal sinuses had chronic inflammation but no signs of acute infection. There is a deviated septum. There were no signs of any facial abscess, just edema on the right side. Assessment & Plan Additional Assessment Additional comments: Acute facial cellulitis Chronic sinusitis Nasal septal deviation Plan There is no surgical indications at this time. Patient is improving and feel that he could be discharged to home in the near future on oral antibiotics. My impression is probably developed from a superficial scrape or bite. Patient does not not recall this happening though. It is not appear to be from an otitis externa as he has not been on any topical medications and there is no purulent drainage or swelling in the ear canal. Consulting physician was made aware that this is my last day practicing.
[2025-02-16 16:43] LABS: Lactate (Lactic Acid) 1.5 mMol/L (0.4-2.0)
[2025-02-17] VITALS: BP 151/79; PULSE 97; RESP 20; TEMP 36.8; O2SAT 97
[2025-02-17] MEDS: AMPICILLIN/SULBAC INJ 3 GM in SODIUM CHLORIDE 0.9% (POP) 100 ML IV ×2 (00:06→05:11)
[2025-02-17 04:00] VITALS: BP 152/65; PULSE 78; RESP 20; TEMP 36.6; O2SAT 97
[2025-02-17 05:53] LABS: Basophils # (Auto) 0.1 Thou/mm3 (0.0-0.2); Basophils % (Auto) 1 % (0-2.5); Eosinophils # (Auto) 0.1 Thou/mm3 (0.0-0.5); Eosinophils % (Auto) 1 % (0-10); Hematocrit 39.9 % (41.0-53.0); Hemoglobin 14.2 g/dL (13.5-16.0); Immature Granulocytes % (Auto) 1 % (0-0); Immature Granulocytes Auto 0.17 Thou/mm3 (0.00-0.00); Lymphocytes # (Auto) 4.2 Thou/mm3 (1.0-4.8); Lymphocytes % (Auto) 33 % (10-50); Mean Corpuscular HGB Conc 35.6 g/dl (31.0-37.0); Mean Corpuscular Hemoglobin 28.8 pg (25.0-35.0); Mean Corpuscular Volume 81 fL (80-100); Monocytes # (Auto) 0.6 Thou/mm3 (0.0-0.8); Monocytes % (Auto) 5 % (0-12); Neutrophils # (Auto) 7.7 Thou/mm3 (1.8-7.7); Neutrophils % (Auto) 60 % (37-80); Nucleated Red Blood Cell % 0 /100 WBC (0); Platelet Count 342 Thou/mm3 (140-440); Red Blood Count 4.93 Miln/mm3 (4.50-5.90); White Blood Count 12.8 Thou/mm3 (3.8-10.6)
[2025-02-17 06:38] LABS: Alanine Aminotransferase 14 U/L (10-49); Albumin, Serum 3.5 gm/dL (3.4-4.8); Anion Gap 12 (7-16); Aspartate Amino Transferase 15 U/L (0-34); BUN/Creatinine Ratio 24 Ratio (12-20); Bilirubin,Total 0.3 mg/dL (0.3-1.2); Blood Urea Nitrogen 19 mg/dL (9-23); Calcium 8.3 mg/dL (8.3-10.6); Calcium (Corrected) 8.7 mg/dL (8.5-10.1); Chloride 105 mMol/L (98-107); Creatinine (Component) 0.8 mg/dL (0.6-1.3); Estimated Creatinine Clearance 94.9 mL/min (>60); Globulin 2.7 gm/dL (2.3-3.5); Glucose 91 mg/dL (74-106); Osmolality,Calculated 283 (275-295); Potassium 3.8 mMol/L (3.4-5.1); Sodium 141 mMol/L (136-145); Total Protein 6.2 gm/dL (5.7-8.2); eGFR > 60 See Note
[2025-02-17 06:39] LABS: Albumin/Globulin Ratio 1.3 (1.2-2.2); Alkaline Phosphatase 103 U/L (46-116)
[2025-02-17 07:32] VITALS: PULSE 70; RESP 20; RESP 98
[2025-02-17 08:00] VITALS: BP 153/78; PULSE 66; RESP 19; TEMP 36.2; O2SAT 99
[2025-02-17 09:07] VITALS: BP 153/78; PULSE 66
[2025-02-17] MEDS: amLODIPine BESYLATE 5 MG TABLET PO (09:07)
[2025-02-17] MEDS: ENOXAPARIN SOD INJ 40 MG/0.4 ML SYRINGE SC (09:07)
[2025-02-17 10:05] LABS: Vancomycin,Trough 10.4 mcg/mL (5.0-10.0)
--- NOTE | 2025-02-17 10:05 | PC.NURSE ---
Waiting on vancomycin trough so I can administer antibiotic. I will discharge after.
--- NOTE | 2025-02-17 10:07 | ESDS_ITS ---
<Statement entered by Yumiko Tello MD - 02/17/25 13:26> The patient is a 64-year-old male with a history of methamphetamine and cocaine abuse, admitted for facial cellulitis. CT scans showed mild acute mastoiditis, soft tissue density in the left Prussak?s space, and sinusitis. The patient was treated with IV antibiotics, and blood cultures were negative after 48 hours. ENT consulted, recommended continuing antibiotics and follow-up outpatient care. The patient?s condition improved significantly during his stay and is now hemodynamically stable. He will be transitioned to oral antibiotics and discharged today. Discharge Plan: The patient is advised to follow up with his PCP and get an ENT referral. He was counseled on the harmful effects of methamphetamine and cocaine use on both physical and mental health. All questions were answered, and the patient confirmed understanding. I discussed with and supervised the programming internship physician who took care of this patient. I personally saw and examined the patient and discussed the assessment and plan with the entire medicine team, including my attending , I agree with the assessment and plan as documented below Yumiko Tello M.D. PGY-2 Disclaimer: Despite multiple revisions, due to the dictation software being used, the document bellow may not be free of grammatical errors including phonetic/typographic errors. However, this does not deter from our commitment to providing health care in the patient's best interest in mind. Planned Discharge Date 02/17/25 DS: Providers Provider Date of admission: 02/16/25 08:51 Primary care physician: Physician No Primary/Family Admitting Provider: Jesus Shin MD Attending Provider on Admission: Jesus Shin MD Consults: 02/16/25 14:12 Consult to Otolaryngology(Head and Neck) Routine Comment: facial cellulitis, mastoiditis Consulting Provider: Demetris Pereyra Attending Provider on DC: Jesus Shin MD Discharging Provider: Jesus Shin MD DS: Diagnosis Problem List Completed Was Problem List Reviewed/Reconciled?: Yes Hospital Course Hospital Course Hospital course: Reason for hospitalization: facial cellulitis, sinusitis Evan Torres is 64 yr male with PMH of polysubstance drug abuse presenting to [facility] ED on 02/17/25 due to right-sided facial swelling/periorbital swelling. Stated that right eye started closing due to the swelling about 5 days before admission. 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 Endorsed mild ear pain, no vision loss, no discharge, no fever, no headaches. In ED, BP 180/80, afebrile, mild tachycardia 97. Leukocytosis 13, glucose 140, LA normal, utox positive for cocaine/amphetamine. CT orbit showed mild acute mastoiditis/soft tissue density in left Prussak's space (possible cholesteatoma), CT face sinusitis. Patient started on IV Unasyn for cellulitis. ENT Dr. Pereyra consulted, there was no concern for emergent surgery, it did not appear to be from otitis externa. Blood cultures were negative, leukocytosis improved, swelling improved, and pain resolved. He was al so started on amlodipine for BP control during hospitalization. Lactic acidosis resolved with adequate fluids. Patient was counseled and advised to discontinue use of recreational drugs and tobacco products. Patient is now in stable condition and ready for discharge. Recommendations were given as below. Discharge Recommendations: Continue taking antibiotic Augmentin as prescribed for cellulitis/sinusitis infection. Continue taking amlodipine as prescribed for treatment of hypertension. Follow up with PCP in 1-2 weeks. You will need referral for ENT services for evaluation of cholesteatoma. If you do not have a PCP, call [facility] at [phone] to schedule an appointment. Hospital Diagnoses: #Facial Cellulitis #Sinusitis #Leukocytosis 2/2 infection #Hypertension #Polysubstance drug use #Tobacco dependence The patient's management plan was discussed with my attending physician Dr. Shin. Laura Oliver MD, PGY-1 Time spent discussing smoking cessation with patient: more than 10 minutes Time Spent with Patient Time attestation: Total time spent providing and/or coordinating discharge services: Time spent: Greater than 30 minutes Exam Vital Signs Temp Pulse Resp BP Pulse Ox O2 Del Method 97.2 F 66 19 153/78 H 99 Room Air 02/17/25 08:00 02/17/25 09:07 02/17/25 08:00 02/17/25 09:07 02/17/25 08:00 02/17/25 08:00 Narrative Exam General: Middle age male, No acute distress, cooperative, unkempt HEENT: NCAT, No JVD noted. Mucosa moist. Normal pupillary light reflex. Right periorbital swelling with erythema has improved, no dishcarge. Warm to touch. Cardiovascular: Normal S1 and S2. Regular rate and rhythm. Respiratory: Lungs are clear to auscultation bilaterally. No wheezing or crackles heard. Abdomen: Soft, nontender, not distended, normal bowel sounds. Skin: Warm, dry, no rashes noted Musculoskeletal: No gross injuries. Able to move all 4 extremities. No pitting edema Neuro: Alert and oriented x3. No focal neuro deficits. Psych: Normal affect and mood Discharge Plan Plan Patient Disposition: HOME (Self Care) Patient condition on transfer: Stable Prescriptions/Referrals Prescriptions/Med Rec: New amlodipine 10 mg tablet 10 mg PO QDAY 30 Days Qty: 30 0RF amoxicillin-pot clavulanate [Augmentin] 500-125 mg tablet 1 tab PO BID 10 Days Qty: 20 0RF Referrals: No Primary/Family,Physician [Primary Care Provider] - Patient/Caregiver Discharge Instructions Other Discharge Activity Instructions:: Continue taking antibiotic Augmentin as prescribed for cellulitis/sinusitis infection. Continue taking amlodipine as prescribed for treatment of hypertension. Follow up with PCP in 1-2 weeks. You will need referral for ENT services for evaluation of cholesteatoma. If you do not have a PCP, call [facility] at [phone] to schedule an appointment. Education Materials: Controlling High Blood Pressure, Discharge Instructions for Cellulitis, ED Sinusitis (Antibiotic Treatment) Print Language: Bulgarian Stand Alone Forms: Any Award Info., Patient Portal Info Letter Discharge Order Discharge Orders: Discharge (Routine); Ordered 02/17/25 Ordered By: Laura Oliver Quality Discharge Quality Measures VTE prophylaxis Attestestation MD Attestation I have examined the patient, reviewed labs and imaging findings, discussed the case with the resident(s), and reviewed entered orders. I agree with the plan of care as outlined in this note. Time Spent: [address] Aleida MD
--- NOTE | 2025-02-17 11:38 | PC.SS ---
SS follow up note; Patient will possibly discharge home today.
== END 2025-02-17 11:19 | disposition home or self-care (01) | DRG 383 ==
LOC: SERX 11:27 → SERHOLD 14:21 → S3NX 15:26
PROVIDERS: Nurse Practitioner Family; Student in an Organized Health Care Education/Training Program; Admitting Provider Student in an Organized Health Care Education/Training Program; Emergency Provider Emergency Medicine; Visit Provider Student in an Organized Health Care Education/Training Program
DX: L03.211 Cellulitis of face (principal); H70.003 Acute mastoiditis without complications, bilateral; F17.210 Nicotine dependence, cigarettes, uncomplicated; J01.30 Acute sphenoidal sinusitis, unspecified; I10 Essential (primary) hypertension; E78.5 Hyperlipidemia, unspecified; H60.93 Unspecified otitis externa, bilateral; T68.XXXA Hypothermia, initial encounter; E11.9 Type 2 diabetes mellitus without complications; H71.92 Unspecified cholesteatoma, left ear; E87.20 Acidosis, unspecified; J32.0 Chronic maxillary sinusitis; F14.10 Cocaine abuse, uncomplicated; J32.2 Chronic ethmoidal sinusitis; F15.10 Other stimulant abuse, uncomplicated; J32.3 Chronic sphenoidal sinusitis; Z79.899 Other long term (current) drug therapy
CPT/HCPCS: 36415; 70450; 70480; 70486; 80053; 80061; 80202; 81001; 82803; 83036; 83605; 83735; 84100; 85025; 87040; 87081; 94762; 96365; 96366; 96367; 96372; 99285; G0378; J0295; J1100; J1650; J1815; J3370; J7030; S0077; A9270; J0736